=== PATIENT | female | born 1955 | race Caucasian/White ===

== ENCOUNTER 2018-02-23 16:07 | Outpatient (CLI) | payer BC | END 2018-02-23 16:08 | disposition home or self-care (01) | LOC: BICMAMMO 16:07 | PROVIDERS: ATTEND Internal Medicine | DX: Z12.31 Encounter for screening mammogram for malignant neoplasm of breast (principal) | CPT/HCPCS: 77063; 77067 ==

== ENCOUNTER 2018-04-13 15:04 | Outpatient (CLI) | payer BC ==
--- NOTE | 2018-04-13 17:28 | BD ---
DEXA BONE DENSITOMETRY: (Dual energy X-ray Absorptiometry) 04/13/18 HISTORY: 63-year-old white female for baseline, age-related osteoporosis screening examination. Ht. 64 inches. Wt. 160 lb. Age of menopause 53 years. COMPARISON: None available. FINDINGS: The bone mineral density (BMD) is given in grams per square centimeter (g/cm2): LUMBAR SPINE: BMD(g/cm2) T-score Z-score L1: 0.862 -1.2 0.2 L2: 0.786 -2.2 -0.7 L3: 0.804 -2.5 -0.9 L4: 0.672 -2.5 -1.9 Total: 0.780 -2.4 -0.9 HIP: Femoral neck: 0.567 -2.5 -1.2 Total: 0.795 -1.2 -0.2 IMPRESSION: 1) The mean bone mineral density of the lumbar spine is osteopenic. Fracture risk is increased. 2) The bone mineral density of the femoral neck is osteoporotic. Fracture risk is high. WYATT Riggs POS: [facility]
== END 2018-04-13 15:05 | disposition home or self-care (01) ==
LOC: BICMAMMO 15:04
PROVIDERS: ATTEND Internal Medicine
DX: Z13.820 Encounter for screening for osteoporosis (principal); M85.88 Other specified disorders of bone density and structure, other site; M81.0 Age-related osteoporosis without current pathological fracture
CPT/HCPCS: 77080

== ENCOUNTER 2018-04-25 12:33 | Emergency (ER) | payer BC | END 2018-04-25 15:22 | disposition home or self-care (01) | LOC: ERS 12:33 | DX: J06.9 Acute upper respiratory infection, unspecified (principal); E78.5 Hyperlipidemia, unspecified | CPT/HCPCS: 99283 ==

== ENCOUNTER 2018-05-11 10:19 | Emergency (ER) | payer BC ==
--- NOTE | 2018-05-11 10:52 | RAD ---
TWO VIEW CHEST: Indication: Cough. FINDINGS: Lungs are clear. No effusion or pneumothorax. Cardiac silhouette is normal in size. There is mild oss eous degenerative change. IMPRESSION: No focal consolidation. POS: [facility]
== END 2018-05-11 12:25 | disposition home or self-care (01) ==
LOC: ERS 10:19
DX: J06.9 Acute upper respiratory infection, unspecified (principal); E78.5 Hyperlipidemia, unspecified
CPT/HCPCS: 71046

== ENCOUNTER 2019-03-31 16:03 | Outpatient (CLI) | payer BC ==
--- NOTE | 2019-03-31 16:46 | MMO ---
Bilateral MAMMO Bilat Screen [facility]. CLINICAL HISTORY: Patient is 63 years old and is seen for screening. VIEWS: The views performed were: . FILMS COMPARED: The present examination has been compared to prior imaging studies performed at [facility] on 08/27/2014, 09/10/2015, 11/27/2016 and 02/23/2018. This study has been interpreted with the assistance of computer-aided detection. MAMMOGRAM FINDINGS: There are scattered fibroglandular densities. There are benign appearing calcifications seen in both breasts. There are benign scattered densities in both breasts. There are no suspicious masses, suspicious calcifications, or new areas of architectural distortion. IMPRESSION: THERE IS NO MAMMOGRAPHIC EVIDENCE OF MALIGNANCY. A ROUTINE FOLLOW-UP MAMMOGRAM IN 1 YEAR IS RECOMMENDED. THE RESULTS OF THIS EXAM WERE SENT TO THE PATIENT. ACR BI-RADS Category 2 - Benign finding MAMMOGRAPHY NOTE: 1. A negative mammogram report should not delay a biopsy if a dominant of clinically suspicious mass is present. 2. Approximately 10% to 15% of breast cancers are not detected by mammography. 3. Adenosis and dense breasts may obscure an underlying neoplasm. Reported by: VANIA RAI MD Electonically Signed: [id number]
== END 2019-03-31 16:04 | disposition home or self-care (01) ==
LOC: BICMAMMO 16:03
PROVIDERS: ATTEND Internal Medicine
DX: Z12.31 Encounter for screening mammogram for malignant neoplasm of breast (principal)
CPT/HCPCS: 77063; 77067

== ENCOUNTER 2020-08-16 11:28 | Outpatient (CLI) | payer BC | END 2020-08-16 11:29 | disposition home or self-care (01) | LOC: BICMAMMO 11:28 | PROVIDERS: ATTEND Internal Medicine | DX: Z12.31 Encounter for screening mammogram for malignant neoplasm of breast (principal) | CPT/HCPCS: 77063; 77067 ==

== ENCOUNTER 2023-03-01 13:58 | Outpatient (CLI) | payer MEDICARE | END 2023-03-01 13:59 | disposition home or self-care (01) | LOC: BICMAMMO 13:58 | PROVIDERS: ATTEND Internal Medicine | DX: Z12.31 Encounter for screening mammogram for malignant neoplasm of breast (principal) | CPT/HCPCS: 77063; 77067 ==